=== PATIENT | male | born 1975 | race Caucasian/White ===

== ENCOUNTER → 2020-03-17 | Day surgery (SDC) | payer OTHER ==
[~2020-03-17] MED LIST: CLARITIN10 MG PO; CYCLOBENZAPRINE10 MG PO; HYDROCODON-ACE1 EAC7 PO; IRBESARTAN-HCT1 EACH PO; MELOXICAM7.5 MG PO
--- NOTE | ~2020-03-17 | OP ---
[facility] [address] [place] [address] OPERATIVE REPORT Name: ABRAHAM CR Room: [facility].#: [id number] Admission: 03/17/20 Attend Phys: Aiden Gonzales Discharge: Date of : 79 Report #: [id number] THIS REPORT FOR: cc: Jonathan,Renato Cooper,Aiden Marvin MD DATE OF SERVICE: 03/17/2020 PREOPERATIVE DIAGNOSIS: Left perirectal abscess. POSTOPERATIVE DIAGNOSIS: Left perirectal abscess. OPERATION: Incision and drainage of ischiorectal abscess. SURGEON: Aiden Gonzales MD ANESTHESIA: General. ESTIMATED BLOOD LOSS: Minimal. SPECIMEN: None. DESCRIPTION OF PROCEDURE: After informed consent was obtained, the patient was brought to the operating room and placed supine. SCDs were placed and working, preoperative antibiotics were administered, general anesthesia was induced. The patient was placed in the lithotomy position. Digital rectal exam was performed. There was an area of firmness in the left perirectal area. This was 1 cm from the anal verge. This was incised with a 1.5 cm incision. Immediately pus was expressed. The area was copiously irrigated with normal saline. It was packed with sterile gauze. Sterile dressings were applied. COMPLICATIONS: None. DISPOSITION: The patient was taken to recovery in satisfactory condition. By: [id number] Gonzales MD /tyler
[2020-03-17 07:40] LABS: CALCIUM 9.5 mg/dL (8.5-10.1); CREATININE 0.9 mg/dL (0.6-1.3); POTASSIUM 4.1 mmol/L (3.5-5.1)
--- NOTE | 2020-03-17 10:00 | EKG ---
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1975 Requested By: Aiden Gonzales Order Number: [id number] Brandie MD: Jw Mayfield Measurements Intervals [place] Rate: 101 P: 48 KS: 164 QRS: 27 QRSD: 84 T: 28 QT: 319 QTc: 414 Interpretive Statements Sinus tachycardia Consider left ventricular hypertrophy ST elev, probable normal early repol pattern No previous ECG available for comparison Electronically Signed On 03-17-2020 9:59:54 MERCHANDISING INTERN by Jw Mayfield [email or web address] <ELECTRONICALLY SIGNED> By: Jw Mayfield MD, [facility] 03/17/20 0959 0751 075 Jw Mayfield MD, FACC /EPI
== END | disposition home or self-care (01) ==
LOC: M.SUR 05:18
PROVIDERS: ATTEND Surgery
DX: K61.39 Other ischiorectal abscess (principal); Z79.899 Other long term (current) drug therapy; Z20.828 Contact with and (suspected) exposure to other viral communicable diseases